=== PATIENT | female | born 1970 | race Two or more races ===

== ENCOUNTER 2023-03-06 17:33 | Emergency (ER) | payer OTHER ==
[~2023-03-06] VITALS: Ht 165.1 cm; Wt 149.7 kg
[2023-03-06 20:42] LABS: HEMATOCRIT 40.3 % (36.0-45.00); HEMOGLOBIN 13.1 g/dL (12.0-15.00); MEAN CELL VOLUME 82.7 fL (80.00-100.00); MEAN CORPUSCULAR HEMOGLOBIN 26.8 pg (27.00-32.0); MEAN CORPUSCULAR HGB CONC 32.5 g/dl (32.0-36.0); PLATELET COUNT 336 K/uL (150-450); RED BLOOD COUNT 4.88 M/uL (4.00-6.00)
[2023-03-06 20:43] LABS: PH,URINE 5.5 (5.0-8.0); URINE APPEARANCE Clear; URINE BILIRRUBIN Negative (NEGATIVE); URINE COLOR Yellow; URINE LEUKOCYTE Small; URINE NITRATE Negative; URINE PROTEIN Negative (NEGATIVE); URINE UROBILINOGEN 0.2 E.U./dl
[2023-03-06 20:47] LABS: URINE BACTERIA 448.5 uL (0.0-1933); URINE EPITHELIAL CELLS 6.9 uL (0.0-38.8); URINE RBC 8.7 uL (0.0-20.8); URINE WBC 120.5 uL (0.0-23.2)
[2023-03-06 21:00] LABS: CALCIUM 9.4 mg/dL (8.5-10.1); CREATININE SERUM 0.95 mg/dL (0.55-1.02); GFR 61.77; POTASSIUM 4.18 mEq/L (3.5-5.1)
[2023-03-06 21:24] LABS: URINE BLOOD TRACE; URINE GLUCOSE >=1000 MG/DL (NEGATIVE)
== END 2023-03-06 21:27 | disposition home or self-care (01) ==
LOC: ER 17:33
PROVIDERS: Emergency Medicine
DX: E11.65 Type 2 diabetes mellitus with hyperglycemia (principal); I10 Essential (primary) hypertension